=== PATIENT | male | born 1935 | race Asian ===

== ENCOUNTER 2017-10-18 06:28 | Day surgery (SDC) | payer MEDICARE, MEDICAID ==
[~2017-10-18] VITALS: Ht 165.1 cm; Wt 52.0 kg
[~2017-10-18 06:28] MED LIST: ALEN70TA48 PO; ATOR40TA28 PO; CALC-1220 PO; OMEP20 PO; SODIUM CHLORIDE 0.9% 1,000 ML IV ONE; TAMS0.4C32 PO
[2017-10-18] MEDS ORDERED: BENZOCAINE 20% 50 MCG/SPRAY 57 GM TP ONE (06:29)
[2017-10-18] MEDS ORDERED: LIDOCAINE HCL 4% 50 ML SOLUTION TP ONE (06:29)
[2017-10-18] MEDS ORDERED: LIDOCAINE HCL 2% 30 ML JELLY TP ONE (06:29)
[2017-10-18] MEDS ORDERED: SODIUM CHLORIDE 0.9% 1,000 ML IV ONE (07:00)
[2017-10-18] MEDS ORDERED: MIDAZOLAM HCL 2 MG/2 ML VIAL ONE (08:22)
[2017-10-18] MEDS ORDERED: FentaNYL CITRATE-PF 100 MCG/2 ML VIAL ONE (08:23)
[2017-10-18] MEDS ORDERED: MethylPREDNISolone SOD SUCC 125 MG/2 ML VIAL IVP ONE ×2 (09:30)
[2017-10-18] MEDS ORDERED: MethylPREDNISolone SOD SUCC 125 MG/2 ML VIAL ONE (09:53)
[2017-10-18] MEDS ORDERED: OXYGEN THERAPY IH SCH (20:00)
== END 2017-10-18 11:00 | disposition home or self-care (01) ==
LOC: SURGERY 06:28
PROVIDERS: ATTEND Internal Medicine Critical Care Medicine
DX: J38.4 Edema of larynx (principal); B37.0 Candidal stomatitis; J84.111 Idiopathic interstitial pneumonia, not otherwise specified; J98.8 Other specified respiratory disorders; J44.9 Chronic obstructive pulmonary disease, unspecified; E78.00 Pure hypercholesterolemia, unspecified; Z85.038 Personal history of other malignant neoplasm of large intestine; Z87.891 Personal history of nicotine dependence; Z98.890 Other specified postprocedural states; Z79.899 Other long term (current) drug therapy
CPT/HCPCS: 31623; 31624; 71045; 87015; 87070; 87205; 87206; 87220; 88108; 88312; J2250; J2930; J3010; J7030